=== PATIENT | female | born 1990 | race Caucasian/White ===

== ENCOUNTER → 2016-07-27 | Outpatient (CLI) | payer OTHER | END | disposition home or self-care (01) | LOC: GMAJ 15:33 | PROVIDERS: ATTEND Family Medicine | DX: J02.9 Acute pharyngitis, unspecified (principal) ==

== ENCOUNTER → 2017-11-29 | Outpatient (CLI) | payer OTHER | LOC: LAB.O 14:52 | PROVIDERS: ATTEND Family Medicine | DX: Z01.84 Encounter for antibody response examination (principal) ==

== ENCOUNTER → 2018-05-22 | Outpatient (CLI) | payer BC ==
--- NOTE | 2018-05-23 06:35 | MRI ---
Procedure: MR BRAIN WITHOUT IV CONTRAST Exam Date: 05/22/2018 Ordering Provider: GIANLUCA GOLDBERG Clinical Indication: HEADACHE Comparison: None Technique: Multiplanar MRI of the brain was obtained without the administration of IV contrast. Findings: Ventricular size and configuration are normal. There is no midline shift or hydrocephalus. There is normal signal within the cortical guzman matter, subcortical white matter, and periventricular white matter. There is normal signal within the deep guzman matter nuclei. There is normal signal in the cerebellum. There is normal signal within the brainstem. There is no evidence of an acute infarct. There is no parenchymal hemorrhage. The pituitary gland is normal in size. There are no pineal masses. There are normal intracranial vascular flow voids. The craniocervical junction is unremarkable. There is normal signal within the paranasal sinuses. The orbits are intact. IMPRESSION: 1. Negative MRI of the brain. Electronically signed by: Amol Dunbar MD 05/23/2018 6:33 AM [facility]
== END ==
LOC: MRI 13:50
PROVIDERS: ATTEND Family Medicine
DX: G44.209 Tension-type headache, unspecified, not intractable (principal)

== ENCOUNTER → 2018-08-05 | Outpatient (CLI) | payer BC | LOC: GMATM 17:52 | PROVIDERS: ATTEND Nurse Practitioner Family | DX: Z32.00 Encounter for pregnancy test, result unknown (principal) ==

== ENCOUNTER → 2018-08-07 | Outpatient (CLI) | payer BC | LOC: LAB.O 17:04 | PROVIDERS: ATTEND Obstetrics & Gynecology | DX: Z32.00 Encounter for pregnancy test, result unknown (principal) ==

== ENCOUNTER 2019-06-12 17:56 | Emergency (ER) | payer SELFPAY ==
[2019-06-12 18:14] VITALS: TEMP 99.2
[2019-06-12] MEDS ORDERED: SODIUM CHLORIDE 0.9% 1000ML 1,000 ML IVS ONE ×2 (18:34→19:52)
[2019-06-12 19:16] VITALS: O2SAT 98
--- NOTE | 2019-06-12 19:19 | RAD ---
EXAM: XR Chest, 2 Views CLINICAL HISTORY: palpitations TECHNIQUE: Frontal and lateral views of the chest. COMPARISON: No relevant prior studies available. FINDINGS: Limitations: None. Lungs: Unremarkable. No consolidation. Pleural space: Unremarkable. No pneumothorax. Heart: Unremarkable. No cardiomegaly. Mediastinum: Unremarkable. Bones/joints: Unremarkable. IMPRESSION: No abnormality noted. Electronically signed by: Marilyn Mccallum MD 06/12/2019 7:18 PM [facility]
[2019-06-12] MEDS ORDERED: POTASSIUM CHLORIDE ELIXIR 20 MEQ/15 ML UD PO ONE (19:25)
[2019-06-12] MEDS ORDERED: POTASSIUM CHLORIDE ELIXIR 20 MEQ/15 ML UD ONE (19:34)
[2019-06-12 20:06] VITALS: BP 153/94
--- NOTE | 2019-06-12 20:59 | ED.PDOC ---
History of Present Illness - General Chief Complaint: Cardiovascular Problem Stated Complaint: Palpitations, chest discomfort Time Seen by Provider: 06/12/19 18:02 Source: patient Exam Limitations: no limitations - History of Present Illness Initial Comments: the patient is a 28-year-old female presenting to the emergency room secondary to a sensation of intermittent palpitations and tachycardia. The patient has checked herself for flu and strep and a urinary tract infection over the last few days and I'll have proven negative. The urinalyses do show significant dehydration however. No nausea vomiting or diarrhea. No chest pain or shortness of breath. No syncope or near syncope. The only recent medication changes that she came off of low-dose Celexa that she was not on for a very long period of time. Timing/Duration: unsure Severity: moderate Improving Factors: nothing Worsening Factors: nothing Associated Symptoms: denies symptoms Allergies/Adverse Reactions: Allergies Codeine Allergy (Unverified 06/12/19 18:14) Rash Home Medications: Ambulatory Orders Potassium Chloride [Potassium Chloride ER] 20 meq PO DAILY #14 tab 06/12/19 Review of Systems - Review of Systems Constitutional: States: no symptoms reported EENTM: States: no symptoms reported Respiratory: States: no symptoms reported Cardiology: States: palpitations Gastrointestinal/Abdominal: States: no symptoms reported Genitourinary: States: no symptoms reported Musculoskeletal: States: no symptoms reported Skin: States: no symptoms reported Neurological: States: no symptoms reported Endocrine: States: no symptoms reported All other Systems: No Change from Baseline Past Medical History (General) - Patient Medical History Hx Stroke: No Hx Congestive Heart Failure: No Hx Diabetes: No Hx Renal Disease: No Hx MRSA: No Surgical History: no surgical history - Vaccination History Hx Influenza Vaccination: Yes - 2019 - Social History Hx Alcohol Use: No Hx Substance Use: No - Female History Patient is a Female of Child Bearing Age (10 -59 yrs old): Yes Hx Last Menstrual Period: 02/18/12 Patient : No Expected Date of Delivery:: 11/24/12 Family Medical History - Family History Mother Family History: No Known Living Status: Still Living Physical Exam - Physical Exam General Appearance: Alert, Comfortable, No apparent distress Eye Exam: bilateral normal Ears, Nose, Throat: hearing grossly normal, normal ENT inspection Neck: full range of motion, supple Respiratory: lungs clear, normal breath sounds, no respiratory distress, no accessory muscle use Cardiovascular/Chest: normal peripheral pulses, regular rate, rhythm, no edema Peripheral Pulses: radial,right: 2+, radial,left: 2+ Gastrointestinal/Abdominal: non tender, soft Rectal Exam: deferred Back Exam: no CVA tenderness, no vertebral tenderness Extremity: normal range of motion, non-tender, normal inspection, no pedal edema, normal capillary refill 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, alert, normal mood/affect, oriented x 3 Skin Exam: normal color Comments: Vital Signs - 24 hr 06/12/19 06/12/19 06/12/19 18:09 19:00 19:21 Temperature 99.2 F Pulse Rate [ 101 H 86 98 H Left Radial] Respiratory 20 16 19 Rate Blood Pressure 161/99 136/85 139/92 [Left Arm] O2 Sat by Pulse 99 98 99 Oximetry 06/12/19 06/12/19 06/12/19 19:22 19:23 20:00 Temperature Pulse Rate [ 101 H 91 H 93 H Left Radial] Respiratory 19 22 18 Rate Blood Pressure 144/89 136/85 153/94 [Left Arm] O2 Sat by Pulse 98 98 98 Oximetry Progress - Progress Progress: 06/12/19 20:59 the patient is a 28-year-old female presented secondary to intermittent palpitations. The patient received 2 L of IV fluids for mild to moderate dehydration. She will have to see how this affects her symptoms over the coming days. Additionally the patient does have some [id number] hypokalemia. She received a dose of oral potassium here and will be placed on oral potassium supplement for the next 2 weeks. She needs to have a level rechecked in a couple weeks. Source of the hypokalemia is not entirely certain. No other acute pathology has been found at this time. Follow back up with primary care doctor in a couple of weeks. ER warnings were given. shon laureano [id number] - Results/Orders Results/Orders: chest x-ray shows no acute pathology. EKG shows normal sinus rhythm at 93 bpm. Normal axis. Normal R-wave progression. No ST segment or T-wave changes indicative of acute ischemia. Normal QT interval. Laboratory Tests 06/12/19 06/12/19 06/12/19 18:45 18:45 18:45 WBC 8.1 RBC 4.52 Hgb 13.6 Hct 40.2 MCV 89.0 MCH 30.0 MCHC 33.7 RDW 12.9 Plt Count 301 MPV 7.6 Absolute Neuts (auto) 6.20 Absolute Lymphs (auto) 1.40 Absolute Monos (auto) 0.50 Absolute Eos (auto) 0.00 Absolute Basos (auto) 0.00 Neutrophils % 75.8 Lymphocytes % 17.0 L Monocytes % 6.7 Eosinophils % 0.2 L Basophils % 0.3 Sodium 139 Potassium 3.0 L Chloride 104 Carbon Dioxide 24 Anion Gap 14.0 BUN 13 Creatinine 0.73 BUN/Creatinine Ratio 17.8 Random Glucose 114 H Serum Osmolality 278.5 Calcium 9.9 Magnesium 2.0 Total Bilirubin 0.7 AST 25 ALT 36 Alkaline Phosphatase 46 Creatine Kinase 125 CK-MB (CK-2) 1.0 CK-MB (CK-2) % Not Reportable Troponin I < 0.02 B-Natriuretic Peptide 7.0 Serum Total Protein 8.6 H Albumin 4.7 Globulin 3.9 H Albumin/Globulin Ratio 1.2 TSH 2.05 Serum HCG, Qual Negative Departure - Departure Clinical Impression: Dehydration, Palpitations, Hypokalemia Disposition: Discharge to Home or Self Care Condition: Fair Departure Forms: ED Discharge - Pt. Copy, Patient Portal Self Enrollment Instructions: Hypokalemia (DC), Dehydration, Adult (DC) Diet: regular diet Activity: increase activity as tolerated Referrals: Jorje Tee MD [Primary Care Provider] - 1-2 Weeks Prescriptions: Potassium Chloride [Potassium Chloride ER] 20 meq PO DAILY #14 tab Home Medications: Ambulatory Orders Potassium Chloride [Potassium Chloride ER] 20 meq PO DAILY #14 tab 06/12/19 Additional Instructions: the patient is a 28-year-old female presented secondary to intermittent palpitations. The patient received 2 L of IV fluids for mild to moderate dehydration. She will have to see how this affects her symptoms over the coming days. Additionally the patient does have some [id number]-ojsvognp hypokalemia. She received a dose of oral potassium here and will be placed on oral potassium supplement for the next 2 weeks. She needs to have a level rechecked in a couple weeks. Source of the hypokalemia is not entirely certain. No other acute pathology has been found at this time. Follow back up with primary care doctor in a couple of weeks. ER warnings were given.
== END 2019-06-12 21:09 | disposition home or self-care (01) ==
LOC: ER 17:56
DX: R00.2 Palpitations (principal); E86.0 Dehydration; E87.6 Hypokalemia; Z88.5 Allergy status to narcotic agent
CPT/HCPCS: 36415; 71046; 80053; 82550; 82553; 83735; 83880; 84443; 84484; 84703; 85025; 93005; J7030

== ENCOUNTER 2019-12-31 22:59 | Emergency (ER) | payer BC ==
[2019-12-31 23:12] VITALS: TEMP 97.3
[2019-12-31] MEDS ORDERED: ONDANSETRON INJ 4 MG/2 ML VIAL IV ONE (23:24)
[2019-12-31] MEDS ORDERED: SODIUM CHLORIDE 0.9% 1000ML 1,000 ML IVS ONE (23:24)
[2019-12-31] MEDS ORDERED: SODIUM CHLORIDE 0.9% (FLUSH) 10 ML SYG IV PRN (23:24)
--- NOTE | 2019-12-31 23:32 | ED.PDOC ---
History of Present Illness - General Time Seen by Provider: 12/31/19 23:24 Source: patient, RN notes reviewed, Vital Signs reviewed, family - Mother Exam Limitations: no limitations - History of Present Illness Initial Comments: Patient is a 29-year-old white female who presents with complaints of weakness, dizziness and slight nausea. 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 This weakness is worse when she gets up and walks around. Improved with rest and lying down. Timing/Duration: 4-6 hours Severity: moderate Improving Factors: rest Worsening Factors: movement Associated Symptoms: nausea/vomiting - Nausea only, weakness Allergies/Adverse Reactions: Allergies Codeine Allergy (Unverified 06/12/19 18:14) Rash Home Medications: Ambulatory Orders Potassium Chloride [Potassium Chloride ER] 20 meq PO DAILY #14 tab 06/12/19 Cefdinir [Omnicef] 300 mg PO BID #14 cap 01/01/20 Potassium Chloride [K-Tab] 40 meq PO DAILY #10 tab 01/01/20 Review of Systems - Review of Systems Constitutional: States: see HPI, malaise, weakness. Denies: chills, fever EENTM: States: no symptoms reported. Denies: eye pain, blurred vision, double vision Respiratory: States: no symptoms reported. Denies: cough, orthopnea, short of breath, wheezing Cardiology: States: no symptoms reported. Denies: chest pain, palpitations, syncope Gastrointestinal/Abdominal: States: see HPI, nausea. Denies: abdominal pain, diarrhea Genitourinary: States: no symptoms reported Musculoskeletal: States: no symptoms reported. Denies: back pain, joint pain, neck pain Skin: States: no symptoms reported. Denies: change in color, rash Neurological: States: see HPI, weakness. Denies: headache Endocrine: States: no symptoms reported Hematologic/Lymphatic: States: no symptoms reported All other Systems: Reviewed and Negative Past Medical History (General) - Patient Medical History Hx Seizures: No Hx Stroke: No Hx Dementia: No Hx Asthma: No Hx of COPD: No Hx Cardiac Disorders: No Hx Congestive Heart Failure: No Hx Pacemaker: No Hx Hypertension: No Hx Thyroid Disease: No Hx Diabetes: No Hx Gastroesophageal Reflux: No Hx Renal Disease: No Hx Cancer: No Hx of HIV: No Hx Hepatitis C: No Hx MRSA: No Surgical History: no surgical history - Vaccination History Hx Tetanus, Diphtheria Vaccination: No Hx Influenza Vaccination: Yes Hx Pneumococcal Vaccination: No - Social History Hx Tobacco Use: No Hx Chewing Tobacco Use: No Hx Alcohol Use: No Hx Substance Use: No Hx Substance Use Treatment: No Hx Depression: No Feels Threatened In Home Enviroment: No Feels Threatened In a Relationship: No Hx Physical Abuse: No Hx Emotional Abuse: No Hx Suspected Abuse: No - Female History Patient is a Female of Child Bearing Age (10 -59 yrs old): Yes Hx Last Menstrual Period: 02/18/12 Patient : No Expected Date of Delivery:: 11/24/12 - Triage Comment ED Triage Comment: The patient appeared anxious and complained of being dizzy and slightly nauseated. Family Medical History - Family History Mother Family History: No Known Living Status: Still Living Physical Exam - Physical Exam General Appearance: Alert, Anxious, Well Developed, Well Groomed, Well Hydrated, Well Nourished Eye Exam: bilateral normal Ears, Nose, Throat: hearing grossly normal, normal pharynx - Except for dry mucous membranes Neck: non-tender, full range of motion, supple, normal inspection Respiratory: chest non-tender, lungs clear, normal breath sounds, no respiratory distress, no accessory muscle use Cardiovascular/Chest: normal peripheral pulses, regular rate, rhythm, no edema, no gallop, no JVD, no murmur Peripheral Pulses: radial,right: 2+, radial,left: 2+ Gastrointestinal/Abdominal: normal bowel sounds, non tender, soft, no organomegaly, no pulsatile mass Back Exam: normal inspection, no CVA tenderness, no vertebral tenderness Extremity: normal range of motion, non-tender, normal inspection, no pedal edema 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 01/01/20 03:03 Patient's lab work shows marked dehydration. She is improved after the IV fluids. Patient has hypokalemia and this was repleted in the ED with p.o. potassium. Patient is noted to have a UTI. Plan on starting on antibiotics this evening and provide her prescription for antibiotics and for potassium. I discussed this plan of care with the patient and her mother and they voiced understanding and agreement with the plan of care. Phillip Gerard M.D. #[id number] - Results/Orders Results/Orders: 12/31/19 23:24 IV Care:Saline Lock per Protoc QSHIFT Sodium Chloride 0.9% (Flush) [Saline Flush Syringe] 10 ml IV PRN PRN 12/31/19 23:25 URINE CULTURE W/COLONY COUNT Stat 12/31/19 23:30 EKG STAT 01/01/20 01:12 Abdoment/Pelvis w/o Contrast [CT] Stat Laboratory Results - last 24 hr 12/31/19 12/31/19 12/31/19 23:25 23:25 23:25 WBC 9.2 RBC 4.29 Hgb 12.9 Hct 38.2 MCV 88.9 MCH 30.1 MCHC 33.8 RDW 13.1 Plt Count 301 MPV 7.6 Absolute Neuts (auto) 6.00 Absolute Lymphs (auto) 2.40 Absolute Monos (auto) 0.70 Absolute Eos (auto) 0.10 Absolute Basos (auto) 0.10 Neutrophils % 65.1 Lymphocytes % 26.4 Monocytes % 7.2 Eosinophils % 0.6 L Basophils % 0.7 Sodium 140 Potassium 3.0 L Chloride 109 Carbon Dioxide 21 Anion Gap 13.0 BUN 13 Creatinine 0.68 BUN/Creatinine Ratio 19.1 Random Glucose 113 H Serum Osmolality 280.3 Calcium 9.7 Magnesium Total Bilirubin 0.3 Direct Bilirubin 0.1 Indirect Bilirubin 0.2 AST 17 ALT 22 Alkaline Phosphatase 43 Serum Total Protein 8.0 Albumin 4.1 Lipase 35 Serum HCG, Qual Negative Urine Color Urine Appearance Urine pH Ur Specific [place] Urine Protein Urine Glucose (UA) Urine Ketones Urine Blood Urine Nitrite Urine Bilirubin Urine Urobilinogen Ur Leukocyte Esterase Urine RBC Urine WBC Ur Epithelial Cells Urine Bacteria Urine Yeast 12/31/19 01/01/20 23:25 00:00 WBC RBC Hgb Hct MCV MCH MCHC RDW Plt Count MPV Absolute Neuts (auto) Absolute Lymphs (auto) Absolute Monos (auto) Absolute Eos (auto) Absolute Basos (auto) Neutrophils % Lymphocytes % Monocytes % Eosinophils % Basophils % Sodium Potassium Chloride Carbon Dioxide Anion Gap BUN Creatinine BUN/Creatinine Ratio Random Glucose Serum Osmolality Calcium Magnesium 1.9 Total Bilirubin Direct Bilirubin Indirect Bilirubin AST ALT Alkaline Phosphatase Serum Total Protein Albumin Lipase Serum HCG, Qual Urine Color Yellow Urine Appearance Sl cloudy Urine pH 6.0 Ur Specific [place] >= 1.030 Urine Protein Negative Urine Glucose (UA) Negative Urine Ketones Negative Urine Blood Large H Urine Nitrite Negative Urine Bilirubin Negative Urine Urobilinogen 0.2 Ur Leukocyte Esterase Small H Urine RBC 1-3 Urine WBC 5-10 H Ur Epithelial Cells 3-5 Urine Bacteria 1+ Urine Yeast Rare CT abdomen and pelvis without contrast on 01/01/2020 CLINICAL INDICATION: Back pain TECHNIQUE: Multiple axial images are obtained throughout the abdomen and pelvis without the administration of contrast. This exam was performed according to our departmental dose-optimization program, which includes automated exposure control, adjustment of the mA and/or kV according to patient size and/or use of iterative reconstruction technique. Total DLP is 2146.72 mGy*cm. COMPARISON: None FINDINGS: Abdomen: The lung bases are clear. There are no renal or ureteral stones and no hydronephrosis. The unenhanced solid abdominal organs are unremarkable. There is no abdominal adenopathy. There is no free fluid or free air within the abdomen. There is a tiny umbilical hernia containing only fat. The abdominal portion of the GI tract is unremarkable. Pelvis: Pelvic organs appear unremarkable by CT. No free fluid is noted in the pelvis. There is no pelvic adenopathy. The pelvic portion of the GI tract including the appendix is unremarkable. No bony abnormality is noted. IMPRESSION: No acute abnormality. Electronically signed by: Austin Zavala 01/01/2020 2:42 AM Departure - Departure Clinical Impression: Hypokalemia, Dehydration UTI (urinary tract infection) Qualifiers: Urinary tract infection type: acute cystitis Hematuria presence: without hematuria Qualified Code(s): N30.00 - Acute cystitis without hematuria Time of Disposition: 03:11 Disposition: Discharge to Home or Self Care Condition: Good Diet: resume usual diet Activity: increase activity as tolerated Referrals: Jorje Tee MD [Primary Care Provider] - 1-5 Days Prescriptions: Cefdinir [Omnicef] 300 mg PO BID #14 cap Potassium Chloride [K-Tab] 40 meq PO DAILY #10 tab Home Medications: Ambulatory Orders Potassium Chloride [Potassium Chloride ER] 20 meq PO DAILY #14 tab 06/12/19 Cefdinir [Omnicef] 300 mg PO BID #14 cap 01/01/20 Potassium Chloride [K-Tab] 40 meq PO DAILY #10 tab 01/01/20
[2020-01-01] MEDS ORDERED: POTASSIUM CHLORIDE 20 MEQ TAB PO ONE (00:37)
[2020-01-01] MEDS ORDERED: SODIUM CHLORIDE 0.9% 1000ML 1,000 ML IVS ONE (00:37)
[2020-01-01 02:18] VITALS: BP 131/77; O2SAT 99
--- NOTE | 2020-01-01 02:43 | CT ---
CT abdomen and pelvis without contrast on 01/01/2020 CLINICAL INDICATION: Back pain TECHNIQUE: Multiple axial images are obtained throughout the abdomen and pelvis without the administration of contrast. This exam was performed according to our departmental dose-optimization program, which includes automated exposure control, adjustment of the mA and/or kV according to patient size and/or use of iterative reconstruction technique. Total DLP is 2146.72 mGy*cm. COMPARISON: None FINDINGS: Abdomen: The lung bases are clear. There are no renal or ureteral stones and no hydronephrosis. The unenhanced solid abdominal organs are unremarkable. There is no abdominal adenopathy. There is no free fluid or free air within the abdomen. There is a tiny umbilical hernia containing only fat. The abdominal portion of the GI tract is unremarkable. Pelvis: Pelvic organs appear unremarkable by CT. No free fluid is noted in the pelvis. There is no pelvic adenopathy. The pelvic portion of the GI tract including the appendix is unremarkable. No bony abnormality is noted. IMPRESSION: No acute abnormality. Electronically signed by: Austin Zavala 01/01/2020 2:42 AM CDT
[2020-01-01] MEDS ORDERED: CEFDINIR 300 MG CAP PO ONE (03:07)
== END 2020-01-01 03:42 | disposition home or self-care (01) ==
LOC: ER 22:59
DX: E86.0 Dehydration (principal); E87.6 Hypokalemia; N30.00 Acute cystitis without hematuria
CPT/HCPCS: 74176; 80048; 80076; 81001; 83690; 83735; 84703; 85025; 87086; 93005; A4216; J2405; J7030

== ENCOUNTER → 2020-04-21 | Outpatient (CLI) | payer BC ==
--- NOTE | 2020-04-22 14:48 | US ---
US THYROID CLINICAL STATEMENT:29 years Female NONTOXIC GOITER. COMPARISON: None TECHNIQUE: Transcutaneous scanning, grayscale and Doppler modes. FINDINGS: Size right thyroid lobe: 4.2 x 1.6 x 1.1 cm Size left thyroid lobe: 4.2 x 1.5 x 1.2 cm Size isthmus: 0.3 cm Estimated total number of nodules greater than or equal to 1 cm: None.. Heterogeneous echotexture. Soft tissue around the thyroid gland show no dominant solid mass, no distinct cyst, no fluid collection, and no large calcifications. IMPRESSION: 1. No nodules or cysts in the thyroid gland. 2. Soft tissue around the thyroid gland is unremarkable. *ACR TI-RADS 2017 Recommendations for imaging follow-up of nodules (baseline study): TR1: No FNA or follow up TR2: No FNA or follow up TR3: FNA if >/= 2.5 cm, follow up if 1.5 - 2.4 cm in 1, 3, and 5 years TR4: FNA if >/= 1.5 cm, follow up if 1.0 - 1.4 cm in 1, 2, 3, and 5 years TR5: FNA if >/= 1.0 cm, follow up if 0.5 - 0.9 cm every year for 5 years ACR TI-RADS recommends that no more than two nodules with the highest ACR TI-RADS total point should be biopsied and no more than four nodules should be followed. These recommendations do not apply to patients with increased risk for thyroid cancer or patients with symptomatic thyroid disease. Electronically signed by: Krishan Linda MD 04/22/2020 2:47 PM [facility]
== END ==
LOC: US 14:02
PROVIDERS: ATTEND Nurse Practitioner Acute Care
DX: E04.9 Nontoxic goiter, unspecified (principal)